=== PATIENT | male | born 1945 | race Caucasian/White ===

== ENCOUNTER 2020-08-16 05:36 | Inpatient (IN) | payer MEDICARE, OTHER ==
[2020-08-16] VITALS (25 sets, daily range): BP systolic 92–143; BP diastolic 45–92
[~2020-08-16] VITALS: Ht 172.7 cm; Wt 78.0 kg
[2020-08-16] MEDS ORDERED: ACETAMINOPHEN 650 MG/SUPP.RECT RC ONE ×2 (05:49→06:00)
--- NOTE | 2020-08-16 05:50 | NUR ---
PT BIBRA [address] [place] [address] C/O RESPIRATORY DISTRESS AT 0445HRS. PATIENT IS A/OX1. PT PLACED ON CARDICA MONITOR AND POX. PATIENT 02 100% ON 4L N/C. PT TEMP RECTAL AT 104.5, COOLING MEASURES INITIATED.
--- NOTE | 2020-08-16 05:55 | NUR ---
STARTED IV LINE RIGHT ANKLE 20G, UA, BLOOD Cx COLLECTED SEND TO LAB. PATIENT ON COOLING MEASURES, TYLENOL RECTAL GIVEN. PATIENT ON MACHINE STRAW HAT PRESSER AND POX. WILL CONTINUE TO MONITOR.
[2020-08-16 06:17] LABS: BASOPHILS % (AUTO) 0.1 % (0.0-2.0); BILIRUBIN,URINE Negative (NEGATIVE); COLOR,URINE YELLOW (YELLOW); HEMATOCRIT 41 % (39-51); HEMOGLOBIN 12.8 g/dL (13.5-17.5); LYMPHOCYTES # (AUTO) 0.3 /CMM (0.8-4.8); LYMPHOCYTES % (AUTO) 2.4 % (20.0-44.0); MEAN CORPUSCULAR HGB CONC 31 g/dl (31.0-36.0); MEAN CORPUSCULAR VOLUME 84 fL (80-96); MONOCYTES # (AUTO) 0.2 /CMM (0.1-1.30); MONOCYTES % (AUTO) 1.9 % (2.0-12.0); NEUTROPHILS % (AUTO) 93.6 % (43.0-81.0); NITRITE, URINE Positive (NEGATIVE); PH,URINE 5.5 (5.0-8.0); PLATELET COUNT (AUTO) 312 /CMM (150-450); PROTEIN,URINE Trace mg/dl (NEGATIVE); RED BLOOD CELL COUNT(AUTO) 4.87 MIL/uL (4.5-6.0); UGLUCOSE Negative (NEGATIVE); WHITE BLOOD COUNT (AUTO) 11.8 K/uL (4.3-11.0)
[2020-08-16] MEDS ORDERED: IV NS 0.9% 500 ML BAG IV ONE ×2 (06:30→07:30)
[2020-08-16] MEDS ORDERED: PIPERACILLIN /TAZOBACTAM 3.375 G in IV D5W 50 ML IV ONE (06:30)
[2020-08-16] MEDS ORDERED: VANCOMYCIN HCL 1.25 GM in IV D5W 260 ML IV ONE (06:30)
--- NOTE | 2020-08-16 06:30 | NUR ---
PHARM CALL FOR JCARLOS 1.25GM. WILL BE DROPPED OFF
[2020-08-16] MEDS ORDERED: PIPERACILLIN /TAZOBACTAM 3.375 G VIAL IV ONE (06:38)
[2020-08-16 06:49] LABS: CALCIUM, SERUM 8.6 mg/dL (8.5-10.1); CARBON DIOXIDE 21 mmol/L (21-32); CHLORIDE 111 mmol/L (98-107); CREATININE 1.3 mg/dL (0.6-1.3); GLUCOSE 125 mg/dL (74-106); POTASSIUM 3.6 mmol/L (3.5-5.1); SODIUM SERUM 146 mmol/L (136-145); UREA NITROGEN, BLOOD 22 mg/dL (7-18)
[2020-08-16 07:02] LABS: ALANINE AMINOTRANSFERASE 13 U/L (12-78); ALBUMIN 2.8 g/dL (3.4-5.0); ALKALINE PHOSPHATASE 88 U/L (46-116); ASPARTATE AMINOTRANSFERASE 13 U/L (15-37); B-TYPE NATRIURETIC PEPTIDE 512 PG/ML (0-125); BILIRUBIN,DIRECT 0.1 mg/dL (0.0-0.2); BILIRUBIN,TOTAL 0.5 mg/dL (0.2-1.0); TOTAL PROTEIN, SERUM 8.1 g/dL (6.4-8.2)
[2020-08-16 07:12] LABS: LEUKOCYTE ESTERASE ,URINE 3+ (NEGATIVE)
[2020-08-16 07:13] LABS: BACTERIA,URINE Few /HPF (None Seen); RBC,URINE 21-50 /HPF (0-2); SQUAMOUS EPITHELIAL CELL,UR Few /HPF (None Seen); WBC,URINE TOO NUMEROUS TO COUN /HPF (0-3)
--- NOTE | 2020-08-16 07:57 | NUR ---
[facility] CALLED ELECTROSTATIC PAINTER PAGED.
--- NOTE | 2020-08-16 08:20 | NUR ---
CALLED FOR TELE BED.
[2020-08-16] MEDS ORDERED: NOREPINEPHRINE 8 MG in IV NS 0.9% 250 ML IV ONE (08:30)
[2020-08-16 08:41] LABS: ABG OXYGEN SATURATION 97.8 % (92.0-98.5); ABG PCO2 21.7 mmHg (35.0-45.0); ABG PH 7.412 (7.350-7.450); ABG PO2 108.8 mmHg (75.0-100.0); AaDO2 79.6 mmHg; COHb 0.4 % (0.5-1.5); MetHb 0.4 % (0.0-1.5); SITE, ABG Right Radial; VENT MODE, BG Nasal Cannula
--- NOTE | 2020-08-16 09:03 | NUR ---
LAB CALLED LACTIC ACID 10.2 MD AWARE.
[2020-08-16] MEDS ORDERED: VALP250S22 PO (09:12)
[2020-08-16] MEDS ORDERED: SENN-175 PO (09:12)
[2020-08-16] MEDS ORDERED: AMIN887L PO (09:12)
[2020-08-16] MEDS ORDERED: ACET325T53 PO (09:12)
[2020-08-16] MEDS ORDERED: NA P133E RC (09:12)
[2020-08-16] MEDS ORDERED: MULT-447 PO (09:12)
[2020-08-16] MEDS ORDERED: ACET-2605 PO ×2 (09:12)
[2020-08-16] MEDS ORDERED: BISA10SU11 RC (09:12)
[2020-08-16] MEDS ORDERED: MAGN400O6 PO (09:12)
[2020-08-16] MEDS ORDERED: ASCO500C17 PO (09:12)
--- NOTE | 2020-08-16 09:25 | NUR ---
GOT BED 259
--- NOTE | 2020-08-16 09:40 | NUR ---
report given to Kd EDGAR for gasper.
[2020-08-16] MEDS ORDERED: Z GUARD REMEDY 2 OZ OINT TP PRN (10:30)
[2020-08-16] MEDS ORDERED: NA PHOS,M-B/NA PHOS,DI-BA 1 EA ENEMA RC PRN (10:30)
[2020-08-16] MEDS ORDERED: MAGNESIUM HYDROXIDE 30 ML UDC PO PRN ×2 (10:30)
[2020-08-16] MEDS ORDERED: ACETAMINOPHEN 325 MG TABLET PO PRN (10:30)
[2020-08-16] MEDS ORDERED: ONDANSETRON HCL/PF 4 MG/2 ML VIAL IVP PRN (10:30)
[2020-08-16] MEDS ORDERED: HYDROCODONE/APAP 5/325MG TABLET PO PRN (10:30)
[2020-08-16] MEDS ORDERED: MAG HYDROX/AL HYDROX/SIMETH 30 ML UDC PO PRN (10:30)
[2020-08-16] MEDS ORDERED: BISACODYL SUPP (10 MG) 10 MG/SUPP.RECT SUPP.RECT RC PRN (10:30)
--- NOTE | 2020-08-16 10:30 | NUR ---
RN ADMITTING NOTES RECEIVED PATIENT FROM SNF, ADMITTED FOR SEPSIS, A/O X 0, NON VERBAL BUT RESPOND TO NAME, ON OXYGEN 3LPM VIA NC. NO SIGNS OF DISTRESS SATING @100%. IV ACCESS ON LEFT FOOT #18, RAC18 WITH LEVO AT 0.1 MCG/KG/MIN, WILL TITRATE PER PROTOCOL. SAFETY MEASURES INITIATED, BED IN LOWEST LOCKED POSITION WITH SIDE RAILS UP X2. CALL LIGHT WITHIN REACH. VSS. WILL CONTINUE TO MONITOR.
--- NOTE | 2020-08-16 10:38 | NUR ---
wheeled patient via gurney accompanied by RN and emt in no distress. RN at bedside to assume care.
[2020-08-16] MEDS: HEPARIN SODIUM, PORCINE 5000 UNITS/1 ML VIAL SQ SCH ×2 (11:28→18:30)
--- NOTE | 2020-08-16 13:49 | NUR ---
[facility] PROVIDED DATES THAT PATIENT RECEIVED THE MODERNA VACCINE. 04/26/20 FIRST SHOT, 05/14/20 SECOND SHOT. NURSE STATES SHE DOESN'T HAVE THE PAPERWORK FOR THESE VACCINES RIGHT NOW BUT WHEN SHE DOES SHE WILL FAX THEM OVER TO US FOR PATIENTS CHART.
[2020-08-16] MEDS: IV NS 0.9% 1,000 ML IV PRN (13:51)
[2020-08-16] MEDS: VALPROIC ACID 250 MG/5 ML UDC PO SCH (17:34)
--- NOTE | 2020-08-16 18:42 | NUR ---
RN NOTES PATIENT IN BED RESTING COMFORTABLY IN MODERATE HIGH BACK REST, A/O X 0, NON VERBAL BUT RESPOND TO NAME, ON RA TOLERATING WELL. NO SIGNS OF DISTRESS SATING @98%. IV ACCESS ON LEFT FOOT #18, RAC18 AND MARLINE MIDLINE WITH NS RUNNING @75ML/HR. SAFETY MEASURES IN PLACE, BED IN LOWEST LOCKED POSITION WITH SIDE RAILS UP X2. CALL LIGHT WITHIN REACH. WILL ENDORSE TO ESTATE PLANNING DIRECTOR NURSE FOR MARTHA.
--- NOTE | 2020-08-16 20:00 | NUR ---
Received patient resting in no acute distress.Alert non verbal orientation 0.Respiration even & unlabored. O2 saturation 96%-98% on RA.SR per tele monitoring.VS stable.Incontinent of urine.Kept clean and dry. FC Fr #16 inserted under aseptic technique draining clear yellow urine.NPO pending speech eval. IVF NS infusing via MARLINE ML site intact.Turned and repositioned.Continue monitoring.
[2020-08-16] MEDS: SENNOSIDES 8.6 MG TABLET PO SCH (22:00)
[2020-08-17] VITALS (20 sets, daily range): BP systolic 86–137; BP diastolic 38–54
--- NOTE | 2020-08-17 | NUR ---
Patient resting.VS remains stable.Turned and repositioned.
[2020-08-17] MEDS: IV NS 0.9% 1,000 ML IV PRN (01:01)
[2020-08-17 04:32] LABS: BASOPHILS # (AUTO) 0.1 /CMM (0.0-0.2); BASOPHILS % (AUTO) 0.8 % (0.0-2.0); EOSINOPHILS % (AUTO) 4.6 % (0.0-6.0); HEMATOCRIT 32 % (39-51); LYMPHOCYTES # (AUTO) 0.8 /CMM (0.8-4.8); LYMPHOCYTES % (AUTO) 7.1 % (20.0-44.0); MEAN CORPUSCULAR HGB CONC 31 g/dl (31.0-36.0); MEAN CORPUSCULAR VOLUME 84 fL (80-96); MONOCYTES # (AUTO) 0.6 /CMM (0.1-1.30); MONOCYTES % (AUTO) 5.7 % (2.0-12.0); NEUTROPHILS # (AUTO) 9.2 /CMM (1.8-8.9); NEUTROPHILS % (AUTO) 81.8 % (43.0-81.0); PLATELET COUNT (AUTO) 206 /CMM (150-450); RED BLOOD CELL COUNT(AUTO) 3.78 MIL/uL (4.5-6.0); WHITE BLOOD COUNT (AUTO) 11.2 K/uL (4.3-11.0)
[2020-08-17 04:44] LABS: CALCIUM, SERUM 7.8 mg/dL (8.5-10.1); CARBON DIOXIDE 22 mmol/L (21-32); CHLORIDE 116 mmol/L (98-107); CREATININE 1.4 mg/dL (0.6-1.3); GLUCOSE 111 mg/dL (74-106); MAGNESIUM 1.9 mg/dL (1.8-2.4); PHOSPHORUS 2.9 mg/dL (2.5-4.9); POTASSIUM 3.8 mmol/L (3.5-5.1); SODIUM SERUM 148 mmol/L (136-145); UREA NITROGEN, BLOOD 28 mg/dL (7-18)
--- NOTE | 2020-08-17 06:05 | NUR ---
Patient vs remains stable.SR.AM care done.Wound care done.Was turned and repositioned q 2 hrs. No significant changes noted.IVF infusing well.All needs met.Safety measures maintained.Call light at bedside.Will endorse to day shift for further management and care.NAD.
--- NOTE | 2020-08-17 07:20 | NUR ---
RN OPENING NOTES RECEIVED PATIENT ASLEEP BUT ROUSABLE YET NON VERBAL. APPEARS COMFORTBALE AND NOT IN ANY RESPIRATORY DISTRESS. SATURATING 98% ON RA. SR 71 ON TELE MONITOR. MARLINE MIDLINE AND PERIPHERAL LINES ON RIGHT AC AND LEFT FOOT. N/S AT 75ML/HR. LEONARD DRAINING TO GRAVITY. SAFETY CHECKS IN PLACE. WILL CONTINUE TO MONITOR.
[2020-08-17] MEDS: IV 1/2NS 1000 ML 1,000 ML IV SCH ×2 (08:02→17:03)
[2020-08-17] MEDS: VALPROIC ACID 250 MG/5 ML UDC PO SCH ×2 (08:02→16:18)
[2020-08-17] MEDS: HEPARIN SODIUM, PORCINE 5000 UNITS/1 ML VIAL SQ SCH ×2 (08:11→16:20)
[2020-08-17 08:42] LABS: ABG BASE EXCESS -4.4 mmol/L; ABG PCO2 26.7 mmHg (35.0-45.0); ABG PH 7.454 (7.350-7.450); AaDO2 45.8 mmHg; COHb 0.5 % (0.5-1.5); MetHb 0.1 % (0.0-1.5); O2Hb 94.4 % (94.0-97.0); SITE, ABG Right Radial; VENT MODE, BG room air
[2020-08-17] MEDS: VANCOMYCIN 1 GM in IV D5W 250 ML IV SCH (10:12)
[2020-08-17] MEDS: PIPERACILLIN /TAZOBACTAM 3.375 G in IV D5W 50 ML IV SCH ×3 (10:12→23:05)
--- NOTE | 2020-08-17 15:30 | NUR ---
RN NOTE MICROBIOLOGY NOTIFIED RN OF PT TESTING MRSA POSITIVE IN THE NARES. CONTACT PRECAUTIONS INITIATED.
--- NOTE | 2020-08-17 18:00 | NUR ---
MEDICINE ASSISTANT NOTE REPORT GIVEN TO TALA JAVED FOR CONTINUITY OF CARE. ESCORTED PATIENT ON BED VIA ACLS PROTOCOL WITH ZENOBIA PABON. PATIENT WASN'T IN ANY DISTRESS AND ARRIVED AT ROOM 327-2 IN STABLE CONDITION. NO PATIENT BELONGINGS TO HAND OVER.
--- NOTE | 2020-08-17 18:15 | NUR ---
MAGNETIC DOCTORFINANCE BUSINESS PARTNER NOTES RECEIVED PT FROM ICU, REPORT FROM FROILAN RN. PT AWAKE, NON VERBAL, APHASIC ON TELE MONITOR WITH NSR. RESPIRATION EVEN AND NON LABORED WITH NO ACUTE RESPIRATORY DISTRESS, RA SATING 96%. ABD SOFT AND NON DISTENDED WITH ACTIVE BOWEL SOUNDS, ON FC DARK YELLOW, NO SEDIMENTS. SKIN WARM TO TOUCH AND DRY, WOUND CONSULT ORDERED DUE TO MULTIPLE WOUNDS. RIGHT KNEE CONTRACTED, BLE WITH HEEL PROTECTOR AND OFFLOAD. FLACC-0, NO PAIN AND DISCOMFORT ASSESSED. IV SITE AT RIGHT FOOT #18, RIGHT WRIST #20, LEFT UPPER ARM MIDLINE #18 PATENT IN FLUSHING, NO S/SX OF INFILTRATION. IV RUNNING AT 0.45% CONSUELO @ 100 ML/HR. BED IN LOW LOCKED POSITION, SRX2 UP FOR SAFETY, HOB ELEVATED, NEAR NURSES STATION. ON NPO EXCEPT MEDS, CRUSHED MEDS. PENDING ST EVAL. VS BP 113/49, HR 69, RR 18, T 98.1. WILL CONT POC.
--- NOTE | 2020-08-17 19:45 | NUR ---
ORGANIC PREPARATION ANALYST OPENING NOTE PATIENT A/OX1; NONVERBAL. ON ROOM AIR TOLERATING WELL WITH NO SOB. EXTERNAL KINDER TEACHER READS NSR AT 80'S. F/C DRAINING JAYASHREE COLORED URINE; PATENT AND INTACT. IV: RIGHT FOOT #18G S/L, RIGHT WRIST #20G, MARLINE MIDLINE #18 1/2NS @ 100ML/HR. SAFETY MEASURES IN PLACE: BED IN LOWEST LOCKED POSITION, CALL LIGHT WITHIN EASY REACH, SIDE RAILS UPX2. PATIENT MEDICALLY STABLE AT THIS TIME. WILL CONTINUE PLAN OF CARE.
[2020-08-17] MEDS: SENNOSIDES 8.6 MG TABLET PO SCH (21:15)
[2020-08-18] VITALS: BP 126/76
[2020-08-18 04:00] VITALS: BP 121/66
[2020-08-18] MEDS: VANCOMYCIN 1 GM in IV D5W 250 ML IV SCH ×2 (04:05→22:00)
[2020-08-18] MEDS: PIPERACILLIN /TAZOBACTAM 3.375 G in IV D5W 50 ML IV SCH ×3 (05:14→17:11)
[2020-08-18] MEDS: IV 1/2NS 1000 ML 1,000 ML IV SCH ×2 (05:14→11:00)
[2020-08-18 07:08] LABS: BASOPHILS # (AUTO) 0.1 /CMM (0.0-0.2); BASOPHILS % (AUTO) 0.8 % (0.0-2.0); EOSINOPHILS % (AUTO) 8.6 % (0.0-6.0); HEMATOCRIT 33 % (39-51); HEMOGLOBIN 10.1 g/dL (13.5-17.5); LYMPHOCYTES # (AUTO) 1.2 /CMM (0.8-4.8); LYMPHOCYTES % (AUTO) 19.6 % (20.0-44.0); MEAN CORPUSCULAR HGB CONC 31 g/dl (31.0-36.0); MEAN CORPUSCULAR VOLUME 86 fL (80-96); MONOCYTES # (AUTO) 0.5 /CMM (0.1-1.30); MONOCYTES % (AUTO) 7.5 % (2.0-12.0); NEUTROPHILS % (AUTO) 63.5 % (43.0-81.0); PLATELET COUNT (AUTO) 169 /CMM (150-450); RED BLOOD CELL COUNT(AUTO) 3.79 MIL/uL (4.5-6.0); WHITE BLOOD COUNT (AUTO) 6.2 K/uL (4.3-11.0)
[2020-08-18 07:28] VITALS: BP 137/45
[2020-08-18 07:36] LABS: CALCIUM, SERUM 7.8 mg/dL (8.5-10.1); CREATININE 1.2 mg/dL (0.6-1.3); MAGNESIUM 2.2 mg/dL (1.8-2.4); PHOSPHORUS 2.3 mg/dL (2.5-4.9); POTASSIUM 3.5 mmol/L (3.5-5.1)
[2020-08-18 08:00] VITALS: BP 102/60
--- NOTE | 2020-08-18 08:02 | NUR ---
[facility] DATA ARCHITECT CLOSING NOTE PATIENT A/OX1; NONVERBAL. ON ROOM AIR TOLERATING WELL WITH NO SOB. EXTERNAL AUTOMATIC TELLER MACHINE SERVICER READS NSR AT 70'S. F/C DRAINING JAYASHREE COLORED URINE; PATENT AND INTACT. IV: RIGHT FOOT #18G S/L, RIGHT WRIST #20G, MARLNIE MIDLINE #18 1/2NS @ 100ML/HR. CHANGED DRESSINGS PER PROTOCOL. SAFETY MEASURES IN PLACE: BED IN LOWEST LOCKED POSITION, CALL LIGHT WITHIN EASY REACH, SIDE RAILS UPX2. PATIENT MEDICALLY STABLE AT THIS TIME. ENDORSE PLAN OF CARE TO ONCOMING MORNING RN
--- NOTE | 2020-08-18 08:08 | NUR ---
WOUND CARE CONSULT: PT PRESENTS WITH CONTRACTED RT LEG WITH DRY ABRASION TO RT KNEE AND WOUND TO RT FOOT, PRESENT ON ADMISSION. RECOMMEND DPM CONSULT. DR BENEDICT NOTIFIED OF CONSULT REQUEST. RECOMMENDATIONS MADE FOR SKIN PROTECTION. PT IS INCONTINENT OF STOOL. HORACIO SOL NOTED. GAMA ISOFLEX LOW AIRLOSS BED TO BE PLACED. IN AGREEMENT WITH PLAN OF CARE. Addendum: 08/18/20 at 0810 by CHARIS FITZGERALD WNDNU Amended: Links added.
[2020-08-18] MEDS ORDERED: IV 1/2NS 1000 ML 1,000 ML IV PRN (09:00)
--- NOTE | 2020-08-18 10:00 | NUR ---
OPENING RN NOTES RECEIVED PATIENT ASLEEP , EASY TO AROUSE, DID NOT RESPOND TO SIMPLE COMMANDS AND WAS NON VERBAL, NO FACIAL S/S OF ANY PAIN & APPEARS TO BE COMFORTABLE, NO RESPIRATORY DISTRESS, OXYGEN IS SAT 97-98% ON ROOM AIR, SR 72-76 ON TELE MONITOR MAINTAINING NORMAL BASE LINE RANGES, L/UA MIDLINE AND PERIPHERAL LINES ON RIGHT AC AND LEFT FOOT INTACT PATENT ALL FLUSHING EASILY , NS RUNNING AT 75ML/HR, LEONARD CATH INTACT PATENT CLEAN, SAFETY MEASURES CHECKED & IN PLACE, WILL CONTINUE TO MONITOR.
[2020-08-18] MEDS: VALPROIC ACID 250 MG/5 ML UDC PO SCH ×2 (10:55→17:09)
[2020-08-18] MEDS ORDERED: NEUTRA PHOS 1 POWD.PACKET NG ONE (11:00)
[2020-08-18] MEDS: HEPARIN SODIUM, PORCINE 5000 UNITS/1 ML VIAL SQ SCH ×2 (11:04→17:08)
[2020-08-18] MEDS: POTASSIUM PHOSPHATE MM 7.5 MMOL in IV NS 0.9% 100 ML IV SCH ×2 (11:20→15:21)
--- NOTE | 2020-08-18 12:32 | NUR ---
RN NOTES PATIENT COOPERATIVE AND TOLERATING ABT TREATMENT WELL WITH NO S/S OF ANY SIDE EFFECTS AT THIS TIME, D/C R LOWER FOOT EXTREMITY IV , NO S/S OF ANY INFECTION NO INFLAMMATION , GAUZE AND PRESSURE APPLIED AND BANDAGE , STOPPED BLEEDING AND INTACT AT THIS TIME, R WRIST AND LEFT AC IV IS INTACT & PATENT, WILL CONTINUE TO MONITOR
[2020-08-18 16:00] VITALS: BP 133/65
[2020-08-18] MEDS: PROSOURCE / PROSTAT (PYXIS) 30 ML UDC PO SCH ×2 (17:05→17:11)
--- NOTE | 2020-08-18 18:59 | NUR ---
ENDING NOTE RN PATIENT NEEDS CONSENT FOR WOUND DEBRIDEMENT CONSENT, LEFT TWO VOICE MESSAGES AT [facility] TO PLEASE CALL AND LET US KNOW WHOM IS IN CHARGE OF SIGNATURES AND CARE PATIENT IS UNABLE TO SIGN CONSENT FORM, ENDORSED TO ONCOMING RN AND CHARGE NURSE ADVISED. ALL IV'S ARE INTACT AND PATENT, NO S/S OF ANY ADVERSE REACTIONS NOTED TO THE ABT TREATMENT, CALL LIGHT IN REACH, WILL CONTINUE TO MONITOR.
[2020-08-18 20:00] VITALS: BP 127/76
--- NOTE | 2020-08-18 20:00 | NUR ---
MS RN OPENING NOTES PATIENT SLEEPING IN BED, EASILY AWAKENED, NONVERBAL, ABLE TO TRACK WITH EYES. PATIENT ON ROOM AIR, NO DISTRESS OR SHORTNESS OF BREATH NOTED. SAFETY MEASURES IN PLACE, BED LOCKED IN LOWEST POSITION, HOB ELEVATED, SIDE RAILS UP X 2, AND CALL LIGHT WITHIN REACH. WILL CONTINUE TO MONITOR
[2020-08-18] MEDS: MUPIROCIN OINT 2% 22 GM TUBE NS SCH (20:36)
--- NOTE | 2020-08-18 22:30 | NUR ---
MS RN NOTE VANCO HELD DUE TO TROUGH OF 22. MANAGER INSTALLATION ELOISA MORENO AND PHARMACY NOTIFIED
[2020-08-18] MEDS: SENNOSIDES 8.6 MG TABLET PO SCH (22:40)
[2020-08-19] MEDS: IV 1/2NS 1000 ML 1,000 ML IV SCH ×2 (00:41→12:44)
[2020-08-19] MEDS: PIPERACILLIN /TAZOBACTAM 3.375 G in IV D5W 50 ML IV SCH ×2 (00:42→06:09)
[2020-08-19 06:14] LABS: BASOPHILS # (AUTO) 0.1 /CMM (0.0-0.2); BASOPHILS % (AUTO) 1.3 % (0.0-2.0); EOSINOPHILS % (AUTO) 10.4 % (0.0-6.0); HEMATOCRIT 33 % (39-51); HEMOGLOBIN 10.9 g/dL (13.5-17.5); LYMPHOCYTES # (AUTO) 1.3 /CMM (0.8-4.8); LYMPHOCYTES % (AUTO) 25.7 % (20.0-44.0); MEAN CORPUSCULAR HGB CONC 33 g/dl (31.0-36.0); MEAN CORPUSCULAR VOLUME 83 fL (80-96); MONOCYTES # (AUTO) 0.5 /CMM (0.1-1.30); MONOCYTES % (AUTO) 10.8 % (2.0-12.0); NEUTROPHILS # (AUTO) 2.6 /CMM (1.8-8.9); NEUTROPHILS % (AUTO) 51.8 % (43.0-81.0); PLATELET COUNT (AUTO) 162 /CMM (150-450); RED BLOOD CELL COUNT(AUTO) 4.04 MIL/uL (4.5-6.0)
[2020-08-19 06:59] LABS: CALCIUM, SERUM 7.9 mg/dL (8.5-10.1); CREATININE 1.1 mg/dL (0.6-1.3); MAGNESIUM 2.2 mg/dL (1.8-2.4); PHOSPHORUS 2.9 mg/dL (2.5-4.9); POTASSIUM 3.1 mmol/L (3.5-5.1)
--- NOTE | 2020-08-19 07:00 | NUR ---
MS RN CLOSING NOTES PATIENT AWAKE IN BED, PATIENT IS NONVERBAL, ABLE TO TRACK WITH EYES. NO SIGNS OF DISTRESS OR SHORTNESS OF BREATH NOTED. MEDICATIONS GIVEN THROUGHOUT SHIFT ORDERED. PATIENT NEEDS MET THROUGHOUT SHIFT. LEFT UPPER ARM MIDLINE RUNNING 0.45% NS @ 75 ML/HR. SAFETY MEASURES IN PLACE, CALL LIGHT WITHIN REACH, BED ALARM ON, BED LOCKED IN LOWEST POSITION. PATIENT NEEDS CONSENT FOR RIGHT FOOT DEBRIDEMENT, V/M LEFT AT [facility]. WILL ENDORSE TO DAY SHIFT NURSE FOR FOLLOW UP
--- NOTE | 2020-08-19 07:55 | NUR ---
MS RN OPENING NOTES RECEIVED PATIENT ASLEEP IN BED, EASILY AROUSE TO VOICE AND TOUCH. A/O X 1, NON-VERBAL BUT RESPONDS WITH TRACKING EYES. NO SIGNS AND SYMPTOMS OF DISTRESS NOTED. BREATHING IS UNLABORED AND REGULAR. IV ACCESS MARLINE MIDLINE PATENT AND INTACT. NS RUNNING 75MLS/HR. LEONARD CATHETER IN PLACE AND DRAINING CLEAR YELLOW. SAFETY MEASURES IN PLACE WITH BED LOCKED AT LOWEST POSITION, SIDE RAILS UP AND CALL LIGHT IS WITHIN REACH. WILL CONTINUE TO MONITOR THROUGHOUT SHIFT. Addendum: 08/19/20 at 1745 by RENETTA HANEY RN MS RN OPENING NOTES RECEIVED PATIENT ASLEEP IN BED, EASILY AROUSE TO VOICE AND TOUCH. NON-VERBAL BUT RESPONDS WITH TRACKING EYES. NO SIGNS AND SYMPTOMS OF DISTRESS NOTED. BREATHING IS UNLABORED AND REGULAR. IV ACCESS MARLINE MIDLINE PATENT AND INTACT. 1/2 NS RUNNING 75MLS/HR. LEONARD CATHETER IN PLACE AND DRAINING CLEAR YELLOW. SAFETY MEASURES IN PLACE WITH BED LOCKED AT LOWEST POSITION, SIDE RAILS UP AND CALL LIGHT IS WITHIN REACH. WILL CONTINUE TO MONITOR THROUGHOUT SHIFT.
[2020-08-19 08:00] VITALS: BP 137/75
[2020-08-19] MEDS: VALPROIC ACID 250 MG/5 ML UDC PO SCH ×2 (08:19→12:45)
[2020-08-19] MEDS: PROSOURCE / PROSTAT (PYXIS) 30 ML UDC PO SCH ×3 (08:19→16:13)
[2020-08-19] MEDS: HEPARIN SODIUM, PORCINE 5000 UNITS/1 ML VIAL SQ SCH ×2 (08:23→16:14)
[2020-08-19] MEDS: MUPIROCIN OINT 2% 22 GM TUBE NS SCH ×2 (08:32→20:22)
--- NOTE | 2020-08-19 09:00 | NUR ---
RN NOTES CALLED [facility] AND ASKED TO SPEAK W/ MEDICAL RECORDS DEPARTMENT REGARDING PATIENT'S RESPONSIBLE CONSTITUTION PARTY; LEFT MESSAGE TO ENERGY AND SUSTAINABILITY MANAGER NO RESPONSE RECEIVED FROM MEDICAL RECORDS.
[2020-08-19] MEDS: POTASSIUM CL. PREMIX PERIPHER. 50 ML IV SCH ×4 (09:47→12:41)
--- NOTE | 2020-08-19 10:09 | NUR ---
RN NOTES CALLED [facility] AGAIN AND SPOKE W/ LUCY FROM MEMBER SERVICES REPRESENTATIVE. PER LUCY, PATIENT HAS A NIECE, MICAH GIBBS ([phone]). CALLED MICAH VIA NUMBER PROVIDED BUT UNABLE TO ANSWER MAILBOX IS FULL. WILL ATTEMPT TO CALL AGAIN TO OBTAIN TELEPHONE CONSENT.
[2020-08-19] MEDS: MEROPENEM 500 MG in IV NS 0.9% 50 ML IV SCH ×2 (12:02→20:21)
--- NOTE | 2020-08-19 15:07 | NUR ---
RN NOTES CALLED [facility] ; NO ANSWER, UNABLE TO LEAVE MESSAGE.
[2020-08-19] MEDS: HYDROGEL DRESSING 90 GM TUBE TP SCH (15:46)
[2020-08-19 16:00] VITALS: BP 132/70
--- NOTE | 2020-08-19 18:08 | NUR ---
MS RN NOTES CALLED JACKI ([facility]W) NO ANSWER, LEFT MESSAGE ON VOICEMAIL TO CALL US BACK REGARDING SIGNATURE FOR CONSENT.
--- NOTE | 2020-08-19 18:23 | NUR ---
MS RN CLOSING NOTES PATIENT AWAKE IN BED. NON VERBAL, ABLE TO TRACK EYES. NO SIGNS AND SYMPTOMS OF DISTRESS. ALL SAFETY MEASURES AND SEIZURE PRECAUTIONS IN PLACE. LEONARD CATHETER IS CLEAN, DRY AND INTACT, DRAINING YELLOW URINE. URINE OUTPUT 300ML ON SHIFT. BED ALARM ON AT LOWEST POSITION WITH PADDED SIDE RAILS UP X 3. HEAD OF BED ELEVATED. ALL MEDICATIONS ADMINSTERED ORDERED PER MD. ALL NEEDS ATTENDED TO AND MET. WILL ENDORSE CONTINUITY OF CARE TO ONCOMING SHIFT.
--- NOTE | 2020-08-19 19:20 | NUR ---
RN ms opening notes Received Pt from morning nurse. Pt is resting in bed comfortably. Pt is non verbal and able to track with his eyes. Respiration is normal in room air. No SOB. No S/S of distress noted. VS is stable. MARLINE midline# 18 is clean, intact and infusing well 1/2 NS @ 75 ml/hr. Safety precautions is maintained. Bed at low position, brakes locked, side rails upX3 and padded, hob elevated and call light is within reach. Will continue to monitor.
--- NOTE | 2020-08-19 19:29 | NUR ---
MS RN notes Called and left a message to Mariel Landry (niece) to get a consent for wound debridement tomorrow.
--- NOTE | 2020-08-19 19:50 | NUR ---
RN notes ID at the bedside.
[2020-08-19 20:00] VITALS: BP 135/65
[2020-08-19] MEDS: SENNOSIDES 8.6 MG TABLET PO SCH (21:02)
[2020-08-20] MEDS: IV 1/2NS 1000 ML 1,000 ML IV SCH ×2 (02:01→16:31)
--- NOTE | 2020-08-20 03:00 | NUR ---
RN ms notes Wound care provided as ordered. Pt tolerated activity well.
[2020-08-20] MEDS: MEROPENEM 500 MG in IV NS 0.9% 50 ML IV SCH ×3 (04:01→22:12)
--- NOTE | 2020-08-20 06:45 | NUR ---
RN ms closing notes Pt is resting in bed comfortably. Pt is non verbal and able to track with his eyes. Respiration is normal in room air. No SOB. No S/S of distress noted. VS is stable. MARLINE midline# 18 is clean, intact and infusing well 1/2 NS @ 75 ml/hr. Honeycutt cath is intact and draining yellow urine 500ml. Safety precautions is maintained. Bed at low position, brakes locked, side rails upX3 and padded, hob elevated and call light is within reach. Will endorse to morning nurse for MARTHA.
[2020-08-20 06:47] LABS: BASOPHILS # (AUTO) 0.1 /CMM (0.0-0.2); BASOPHILS % (AUTO) 1.9 % (0.0-2.0); EOSINOPHILS % (AUTO) 10.6 % (0.0-6.0); HEMATOCRIT 32 % (39-51); HEMOGLOBIN 10.5 g/dL (13.5-17.5); LYMPHOCYTES # (AUTO) 1.2 /CMM (0.8-4.8); LYMPHOCYTES % (AUTO) 24.5 % (20.0-44.0); MEAN CORPUSCULAR HGB CONC 33 g/dl (31.0-36.0); MEAN CORPUSCULAR VOLUME 82 fL (80-96); MONOCYTES # (AUTO) 0.6 /CMM (0.1-1.30); MONOCYTES % (AUTO) 12.6 % (2.0-12.0); NEUTROPHILS # (AUTO) 2.4 /CMM (1.8-8.9); NEUTROPHILS % (AUTO) 50.4 % (43.0-81.0); PLATELET COUNT (AUTO) 175 /CMM (150-450); RED BLOOD CELL COUNT(AUTO) 3.91 MIL/uL (4.5-6.0); WHITE BLOOD COUNT (AUTO) 4.7 K/uL (4.3-11.0)
[2020-08-20 06:55] LABS: CALCIUM, SERUM 7.8 mg/dL (8.5-10.1); CREATININE 0.9 mg/dL (0.6-1.3); MAGNESIUM 1.9 mg/dL (1.8-2.4); PHOSPHORUS 2.4 mg/dL (2.5-4.9); POTASSIUM 3.1 mmol/L (3.5-5.1)
--- NOTE | 2020-08-20 07:54 | NUR ---
MS RN OPENING NOTE RECEIVED PATIENT IN BED. NON VERBAL, OPENS EYES. ON ROOM AIR, TOLERATING WELL. NO SOB NOTED. IN NO APPARENT DISTRESS. IV ACCESS ON MARLINE MIDLINE #18 G, INTACT AND PATENT, 1/2 NS CURRENTLY RUNNING AT 75 ML/HR. LEONARD CATHETER IN PLACE, DRAINING YELLOW URINE. FALL AND RISK ASPIRATION OBSERVED. SAFETY MEASURES MAINTAINED. BED IN LOWEST POSITION, BRAKES LOCKED. SIDE RAILS UP X2. CALL LIGHT WITHIN REACH. WILL CONTINUE PLAN OF CARE. Addendum: 08/20/20 at 0802 by STANLEY BURR RN ADDITIONAL NOTE: DVT PUMPS ATTACHED TO BLE
[2020-08-20 08:00] VITALS: BP 148/82
[2020-08-20] MEDS: HEPARIN SODIUM, PORCINE 5000 UNITS/1 ML VIAL SQ SCH ×2 (08:22→16:32)
[2020-08-20] MEDS: MUPIROCIN OINT 2% 22 GM TUBE NS SCH ×2 (08:23→22:14)
[2020-08-20] MEDS: VALPROIC ACID 250 MG/5 ML UDC PO SCH ×2 (08:23→16:33)
[2020-08-20] MEDS: HYDROGEL DRESSING 90 GM TUBE TP SCH (08:23)
[2020-08-20] MEDS: PROSOURCE / PROSTAT (PYXIS) 30 ML UDC PO SCH ×3 (08:23→16:57)
[2020-08-20] MEDS: POTASSIUM CL. PREMIX PERIPHER. 50 ML IV SCH ×5 (08:35→14:44)
[2020-08-20] MEDS ORDERED: NEUTRA PHOS 1 POWD.PACKET PO ONE (10:30)
--- NOTE | 2020-08-20 10:44 | NUR ---
MS RN NOTE: CONSENT OBTAINED TELEPHONE CONSENT FROM MICAH GIBBS (NIECE) FOR THE WOUND DEBRIDEMENT ON THE RLE. JOSE F BOSWELL SIGNED ALSO A WITNESS.
[2020-08-20] MEDS ORDERED: MERO500V23 IV (10:52)
[2020-08-20 12:07] LABS: BAND % (MANUAL) 2 % (0.0-5.0); EOSINOPHILS % (MANUAL) 7 % (0-4); MONOCYTES % (MANUAL) 14 % (0-11.0); NEUTROPHILS % (MANUAL) 51 (42-76)
[2020-08-20 12:08] LABS: LYMPHOCYTES % (MANUAL) 26 % (16-48); METAMYELOCYTES % 1 % (0-0)
[2020-08-20 16:00] VITALS: BP 144/70
--- NOTE | 2020-08-20 18:15 | NUR ---
MS RN CLOSING NOTE PATIENT RESTING IN BED. A/O X1. PT ABLE TO SAY WORD LIKE "NO". ON ROOM AIR, SATURATING WELL AT 96%. NO SOB NOTED. NO S/S OF RESPIRATORY DISTRESS. IV ACCESS ON MARLINE MIDLINE #18 G, INTACT AND PATENT, 1/2 NS CURRENTLY RUNNING AT 75 ML/HR. LEONARD CATHETER IN PLACE, DRAINING YELLOW URINE, 800 CC OUTPUT. DVT PUMP ATTACHED TO L LOWER LEG. FALL AND RISK ASPIRATION OBSERVED. SAFETY MEASURES MAINTAINED. BED IN LOWEST POSITION, BRAKES LOCKED. SIDE RAILS UP X2. CALL LIGHT WITHIN REACH. ENDORSE CONTINUITY OF CARE TO ONCOMING SHIFT.
[2020-08-20 20:00] VITALS: BP 155/72
[2020-08-20] MEDS: SENNOSIDES 8.6 MG TABLET PO SCH (22:15)
[2020-08-21] MEDS: IV 1/2NS 1000 ML 1,000 ML IV SCH (01:45)
[2020-08-21] MEDS: MEROPENEM 500 MG in IV NS 0.9% 50 ML IV SCH ×3 (04:29→20:05)
[2020-08-21 06:45] LABS: CREATININE 0.8 mg/dL (0.6-1.3); PHOSPHORUS 2.3 mg/dL (2.5-4.9); POTASSIUM 3.5 mmol/L (3.5-5.1)
--- NOTE | 2020-08-21 07:20 | NUR ---
MS RN OPENING NOTE RECEIVED PATIENT IN BED. A/O X1. ON ROOM AIR, TOLERATING WELL. NO SOB NOTED. NO S/S OF RESPIRATORY DISTRESS. IV ACCESS ON MARLINE MIDLINE #18 G, INTACT AND PATENT, 1/2 NS CURRENTLY RUNNING AT 75 ML/HR. LEONARD CATHETER IN PLACE, DRAINING YELLOW URINE. DVT PUMP ATTACHED TO L LOWER LEG. FALL AND RISK ASPIRATION OBSERVED. SAFETY MEASURES MAINTAINED. BED IN LOWEST POSITION, BRAKES LOCKED. SIDE RAILS UP X2. CALL LIGHT WITHIN REACH. WILL CONTINUE PLAN OF CARE.
[2020-08-21 08:01] VITALS: BP 165/78
[2020-08-21] MEDS: VALPROIC ACID 250 MG/5 ML UDC PO SCH ×2 (08:28→17:04)
[2020-08-21] MEDS: HEPARIN SODIUM, PORCINE 5000 UNITS/1 ML VIAL SQ SCH ×2 (08:28→17:03)
[2020-08-21] MEDS: HYDROGEL DRESSING 90 GM TUBE TP SCH (08:29)
[2020-08-21] MEDS: MUPIROCIN OINT 2% 22 GM TUBE NS SCH ×2 (08:29→20:19)
[2020-08-21] MEDS: PROSOURCE / PROSTAT (PYXIS) 30 ML UDC PO SCH ×3 (08:29→17:04)
[2020-08-21] MEDS ORDERED: NEUTRA PHOS 1 POWD.PACKET PO ONE (11:00)
[2020-08-21 15:54] VITALS: BP 154/77
--- NOTE | 2020-08-21 18:17 | NUR ---
MS RN CLOSING NOTE PATIENT RESTING IN BED. A/O X1. ON ROOM AIR, SATURATING WELL AT 99%. NO SOB NOTED. NO S/S OF RESPIRATORY DISTRESS. IV ACCESS ON MARLINE MIDLINE #18 G, INTACT AND PATENT. LEONARD CATHETER IN PLACE, DRAINING YELLOW URINE, 1600 OUTPUT. DVT PUMP ATTACHED TO L LOWER LEG. ALL DUE MEDS GIVEN ORDERED. WOUND TREATMENT ORDERED. FALL AND RISK ASPIRATION OBSERVED. SAFETY MEASURES MAINTAINED. BED IN LOWEST POSITION, BRAKES LOCKED. SIDE RAILS UP X2. CALL LIGHT WITHIN REACH. WILL ENDORSE CONTINUITY OF CARE TO ONCOMING SHIFT.
--- NOTE | 2020-08-21 19:19 | NUR ---
MS RN NOTES PATIENT RESTING IN BED. A/O X1. ON ROOM AIR, SATURATING WELL AT 99%. NO SOB NOTED. NO S/S OF RESPIRATORY DISTRESS. IV ACCESS ON MARLINE MIDLINE #18 G, INTACT AND PATENT. LEONARD CATHETER IN PLACE, DRAINING YELLOW URINE. DVT PUMP ATTACHED TO L LOWER LEG. FALL AND RISK ASPIRATION OBSERVED. SAFETY MEASURES MAINTAINED. BED IN LOWEST POSITION, BRAKES LOCKED. SIDE RAILS UP X2. CALL LIGHT WITHIN REACH. WILL CONTINUE TO MONITOR.
[2020-08-21 20:00] VITALS: BP 160/75
[2020-08-21] MEDS: SENNOSIDES 8.6 MG TABLET PO SCH (21:16)
[2020-08-22] MEDS: MEROPENEM 500 MG in IV NS 0.9% 50 ML IV SCH ×3 (04:07→21:21)
--- NOTE | 2020-08-22 06:54 | NUR ---
MS RN NOTES PATIENT RESTING IN BED. A/O X1. ON ROOM AIR, SATURATING WELL AT 99%. NO SOB NOTED. NO S/S OF RESPIRATORY DISTRESS. IV ACCESS ON MARLINE MIDLINE #18 G, INTACT AND PATENT. LEONARD CATHETER IN PLACE, DRAINING YELLOW URINE. DVT PUMP ATTACHED TO L LOWER LEG. ALL DUE MEDS GIVEN AND TOLERATED WELL. FALL AND RISK ASPIRATION OBSERVED. SAFETY MEASURES MAINTAINED. BED IN LOWEST POSITION, BRAKES LOCKED. SIDE RAILS UP X2. CALL LIGHT WITHIN REACH. WILL ENDORSE CAR ETO DAY SHIFT NURSE.
[2020-08-22 06:57] LABS: CALCIUM, SERUM 8.3 mg/dL (8.5-10.1); CREATININE 0.9 mg/dL (0.6-1.3); POTASSIUM 3.4 mmol/L (3.5-5.1)
--- NOTE | 2020-08-22 07:54 | NUR ---
MS RN OPENING NOTES Patient is sleeping at this time but easily becomes alert to touch. Oriented to self only. Will continue on aspiration precautions, skin precautions (turn q2h). To continue with wound treatments as ordered. No signs of distress at this time. Sleeping well.
[2020-08-22 08:07] VITALS: BP 158/69
[2020-08-22] MEDS: PROSOURCE / PROSTAT (PYXIS) 30 ML UDC PO SCH ×3 (09:31→17:48)
[2020-08-22] MEDS: VALPROIC ACID 250 MG/5 ML UDC PO SCH ×2 (09:32→17:14)
[2020-08-22] MEDS: MUPIROCIN OINT 2% 22 GM TUBE NS SCH ×2 (09:32→21:22)
[2020-08-22] MEDS: HYDROGEL DRESSING 90 GM TUBE TP SCH (09:33)
[2020-08-22] MEDS: HEPARIN SODIUM, PORCINE 5000 UNITS/1 ML VIAL SQ SCH ×2 (09:34→17:15)
[2020-08-22] MEDS ORDERED: POTASSIUM CHLORIDE 20 MEQ POWDER PACKET PO ONE (10:00)
[2020-08-22 15:54] VITALS: BP 173/89
[2020-08-22 16:56] VITALS: BP 139/75
--- NOTE | 2020-08-22 18:48 | NUR ---
MS RN CLOSING NOTES Patient is Alert to voice and touch. VS WNL. Tolerating wound care well, no signs of pain or discomfort. No s/s of infection to R foot wound or R knee abrasion. Continue on aspiration precautions. Tolerating pureed diet, crushed meds, and NTL well, no cough or choke. Ate 100% of dinner. Continue on seizure precautions, no seizure acctivity this shift. No adverse effeccts from IV ABX.
--- NOTE | 2020-08-22 19:52 | NUR ---
MS RN OPENING NOTE PATIENT A/OX0; NONVERBAL. ON ROOM AIR TOLERATING WELL WITH NO SOB. F/C DRAINING JAYASHREE COLORED URINE; PATENT AND INTACT. MARLINE MIDLINE #18; PATENT AND INTACT. NO S/S OF PAIN OR DISCOMFORT. SAFETY MEASURES IN PLACE: BED IN LOWEST LOCKED POSITION, CALL LIGHT WITHIN EASY REACH, SIDE RAILS UPX2. PATIENT MEDICALLY STABLE AT THIS TIME. WILL CONTINUE PLAN OF CARE.
[2020-08-22 20:00] VITALS: BP 170/72
[2020-08-22] MEDS: SENNOSIDES 8.6 MG TABLET PO SCH (21:21)
[2020-08-23] MEDS: hydrALAZINE HCL 10 MG TABLET PO PRN ×2 (00:14→20:27)
--- NOTE | 2020-08-23 00:14 | NUR ---
MS RN NOTE - BP PATIENT NOTED WITH BP OF 161/71 AND PULSE OF 77. WILLA PADILLA ORDERED HYDRALAZINE PRN . ADMINISTERED MEDICATION ORDERED. WILL CONTINUE TO ASSESS BP.
[2020-08-23] MEDS: MEROPENEM 500 MG in IV NS 0.9% 50 ML IV SCH ×3 (04:57→20:38)
[2020-08-23 07:09] LABS: CALCIUM, SERUM 8.2 mg/dL (8.5-10.1); CREATININE 0.9 mg/dL (0.6-1.3); POTASSIUM 4.1 mmol/L (3.5-5.1)
--- NOTE | 2020-08-23 07:35 | NUR ---
MS RN CLOSING NOTE PATIENT A/OX0; NONVERBAL. ON ROOM AIR TOLERATING WELL WITH NO SOB. F/C DRAINING JAYASHREE COLORED URINE; PATENT AND INTACT. MARLINE MIDLINE #18; PATENT AND INTACT. NO S/S OF PAIN OR DISCOMFORT. SAFETY MEASURES IN PLACE: BED IN LOWEST LOCKED POSITION, CALL LIGHT WITHIN EASY REACH, SIDE RAILS UPX2. PATIENT MEDICALLY STABLE AT THIS TIME. ENDORSE MARTHA TO ONCOMING MORNING RN.
--- NOTE | 2020-08-23 07:38 | NUR ---
MS RN OPENING NOTE PATIENT A/OX0; NONVERBAL. ON ROOM AIR TOLERATING WELL WITH NO SOB. F/C DRAINING JAYASHREE COLORED URINE; PATENT AND INTACT. MARLINE MIDLINE #18; PATENT AND INTACT. NO S/S OF PAIN OR DISCOMFORT. SAFETY MEASURES IN PLACE: BED IN LOWEST LOCKED POSITION, CALL LIGHT WITHIN EASY REACH, SIDE RAILS UPX2.
[2020-08-23] MEDS: VALPROIC ACID 250 MG/5 ML UDC PO SCH ×2 (09:01→17:13)
[2020-08-23] MEDS: HEPARIN SODIUM, PORCINE 5000 UNITS/1 ML VIAL SQ SCH (09:02)
[2020-08-23] MEDS: MUPIROCIN OINT 2% 22 GM TUBE NS SCH ×2 (09:49→20:38)
[2020-08-23] MEDS: PROSOURCE / PROSTAT (PYXIS) 30 ML UDC PO SCH ×3 (09:49→18:28)
[2020-08-23] MEDS: HYDROGEL DRESSING 90 GM TUBE TP SCH (09:49)
--- NOTE | 2020-08-23 18:46 | NUR ---
MS RN CLOSING NOTE PATIENT A/OX0; NONVERBAL. ON ROOM AIR TOLERATING WELL WITH NO SOB. F/C DRAINING JAYASHREE COLORED URINE; PATENT AND INTACT. MARLINE MIDLINE #18; PATENT AND INTACT. NO S/S OF PAIN OR DISCOMFORT. SAFETY MEASURES IN PLACE: BED IN LOWEST LOCKED POSITION, CALL LIGHT WITHIN EASY REACH, SIDE RAILS UPX2.
--- NOTE | 2020-08-23 19:30 | NUR ---
MS RN OPENING NOTES PATIENT AWAKE IN BED, NONVERBAL, ABLE TO TRACK WITH EYES. PATIENT ON ROOM AIR, NO SIGNS OF DISTRESS OR SHORTNESS OF BREATH NOTED. LEFT UPPER ARM MIDLINE #18G INTACT AND PATENT. NO SIGNS OF PAIN AT THIS TIME. SAFETY AND ASPIRATION PRECAUTIONS IN PLACE, BED LOCKED IN LOWEST POSITION, HOB ELEVATED, SIDE RAILS UP X 3, AND CALL LIGHT WITHIN REACH. WILL CONTINUE TO MONITOR
[2020-08-23 20:00] VITALS: BP 174/86
[2020-08-23 20:27] VITALS: BP 174/86
[2020-08-23] MEDS: SENNOSIDES 8.6 MG TABLET PO SCH (22:23)
--- NOTE | 2020-08-24 06:35 | NUR ---
MS RN NOTE GAVE MERREM IV @ 100 ML/HR AT 0536 BUT FORGOT TO SCAN IT UNTIL NOW.
[2020-08-24] MEDS: MEROPENEM 500 MG in IV NS 0.9% 50 ML IV SCH (06:36)
--- NOTE | 2020-08-24 07:00 | NUR ---
MS RN CLOSING NOTE PATIENT SLEEPING IN BED, NONVERBAL, ABLE TO TRACK WITH EYES. PATIENT ON ROOM AIR, NO SIGNS OF DISTRESS OR SHORTNESS OF BREATH NOTED. LEFT UPPER ARM MIDLINE #18G INTACT AND PATENT. NO SIGNS OF PAIN AT THIS TIME. SAFETY AND ASPIRATION PRECAUTIONS IN PLACE, BED LOCKED IN LOWEST POSITION, HOB ELEVATED, SIDE RAILS UP X 3, AND CALL LIGHT WITHIN REACH. WILL ENDORSE TO WINDSURFING INSTRUCTOR NURSE FOR CONTINUITY OF CARE
[2020-08-24] MEDS: MUPIROCIN OINT 2% 22 GM TUBE NS SCH (08:30)
[2020-08-24] MEDS: PROSOURCE / PROSTAT (PYXIS) 30 ML UDC PO SCH (08:30)
[2020-08-24] MEDS: HYDROGEL DRESSING 90 GM TUBE TP SCH (08:31)
[2020-08-24] MEDS: VALPROIC ACID 250 MG/5 ML UDC PO SCH (08:32)
--- NOTE | 2020-08-24 12:11 | NUR ---
PT DISCHARGED BACK TO [facility], REPORT AND FACE SHEET GIVEN TO EMT PERSONNEL. MIDLINE REMAINS FOR ANTIBIOTIC THERQAPY TO BE CONTINUED AT SNF FOR 5 DAYS WITH MERROPENEM , F/C DRAINED AND REMAINED FOR SNF. PT ASSISTED TO GURFULKS RUN AND DOWNSTAIRS. ALL BELONGINGS ACCOUNTED FOR.
== END 2020-08-24 12:45 | DRG 853 ==
LOC: ER 05:41 → ICU 09:33 → TELE 08-17 18:05 → MED 08-18 08:59
PROVIDERS: ADMIT Internal Medicine; ATTEND Internal Medicine
PROC: 05HY33Z Insertion of Infusion Device into Upper Vein, Percutaneous Approach (ICD-10-PCS; 2020-08-16)
PROC: 0QBL0ZZ Excision of Right Tarsal, Open Approach (ICD-10-PCS; principal; 2020-08-20)
PROC: 0QBN0ZZ Excision of Right Metatarsal, Open Approach (ICD-10-PCS; 2020-08-20)
DX: A41.9 Sepsis, unspecified organism (principal); L89.894 Pressure ulcer of other site, stage 4; G93.41 Metabolic encephalopathy; N17.0 Acute kidney failure with tubular necrosis; J96.01 Acute respiratory failure with hypoxia; R65.21 Severe sepsis with septic shock; N39.0 Urinary tract infection, site not specified; E87.2 Acidosis; E87.0 Hyperosmolality and hypernatremia; M86.171 Other acute osteomyelitis, right ankle and foot; G40.909 Epilepsy, unspecified, not intractable, without status epilepticus; I50.9 Heart failure, unspecified; Z20.822 Contact with and (suspected) exposure to COVID-19; I70.235 Atherosclerosis of native arteries of right leg with ulceration of other part of foot; F03.90 Unspecified dementia, unspecified severity, without behavioral disturbance, psychotic disturbance, mood disturbance, and anxiety; R13.10 Dysphagia, unspecified; Z91.018 Allergy to other foods; F09 Unspecified mental disorder due to known physiological condition; B96.20 Unspecified Escherichia coli [E. coli] as the cause of diseases classified elsewhere; M20.42 Other hammer toe(s) (acquired), left foot; M20.41 Other hammer toe(s) (acquired), right foot; M24.561 Contracture, right knee; M62.562 Muscle wasting and atrophy, not elsewhere classified, left lower leg; M62.561 Muscle wasting and atrophy, not elsewhere classified, right lower leg
CPT/HCPCS: 36410; 36415; 36600; 71045-TC; 80048-TC; 80076-TC; 80202-TC; 81001; 83605-TC; 83735-TC; 83880; 84100-TC; 84484-TC; 85025-TC; 85730-TC; 87040-TC; 87081-TC; 87086-TC; 87186-TC; 92526; 92611-TC; A6248; C9803; G0378; J1644; J2185; J2543; J3370; J3480; J3490; J7030; J7040; J7050; J7060; U0003